=== PATIENT | female | born 1970 | race Caucasian/White ===

== ENCOUNTER 2016-09-12 10:52 | Emergency (ER) | payer OTHER ==
[~2016-09-12] VITALS: Ht 157.5 cm; Wt 77.1 kg
[~2016-09-12 10:52] MED LIST: BUS10T PO; FLUO-125 PO; LEVO75TA50 PO
[2016-09-12 11:00] VITALS: BP 151/101
== END 2016-09-12 13:14 | disposition home or self-care (01) ==
LOC: ER 10:57
DX: J20.9 Acute bronchitis, unspecified (principal); J01.90 Acute sinusitis, unspecified; I10 Essential (primary) hypertension; E07.9 Disorder of thyroid, unspecified; F17.210 Nicotine dependence, cigarettes, uncomplicated; F15.10 Other stimulant abuse, uncomplicated

== ENCOUNTER 2016-11-28 21:31 | Emergency (ER) | payer OTHER ==
[~2016-11-28] VITALS: Ht 157.5 cm; Wt 79.4 kg
[2016-11-28] MEDS ORDERED: cloNIDine HCL 0.1 MG TAB ONE (21:54)
[2016-11-28] MEDS ORDERED: cloNIDine HCL 0.1 MG TAB PO ONE (23:30)
[2016-11-28] MEDS ORDERED: IBUPROFEN 600 MG TAB PO ONE (23:45)
[2016-11-28 23:50] VITALS: BP 154/105
== END 2016-11-29 00:04 | disposition home or self-care (01) ==
LOC: ER 21:34
DX: G89.29 Other chronic pain (principal); M25.561 Pain in right knee; Z88.1 Allergy status to other antibiotic agents; I10 Essential (primary) hypertension; E07.9 Disorder of thyroid, unspecified; F17.210 Nicotine dependence, cigarettes, uncomplicated; F15.10 Other stimulant abuse, uncomplicated; Z76.0 Encounter for issue of repeat prescription
CPT/HCPCS: 81025

== ENCOUNTER 2017-02-13 08:46 | Emergency (ER) | payer OTHER ==
[~2017-02-13] VITALS: Ht 157.5 cm; Wt 79.4 kg
[2017-02-13 09:03] VITALS: BP 132/99
[2017-02-13] MEDS ORDERED: cefTRIAXone SOD 1,000 MG VL IM ONE (09:15)
== END 2017-02-13 09:48 | disposition home or self-care (01) ==
LOC: ER 08:50
DX: J03.90 Acute tonsillitis, unspecified (principal); F17.210 Nicotine dependence, cigarettes, uncomplicated; F15.10 Other stimulant abuse, uncomplicated; E07.9 Disorder of thyroid, unspecified; Z88.1 Allergy status to other antibiotic agents
CPT/HCPCS: 96372; 99283; J0696

== ENCOUNTER 2017-04-18 00:25 | Emergency (ER) | payer OTHER ==
[~2017-04-18] VITALS: Ht 157.5 cm; Wt 74.8 kg
[2017-04-18 01:27] VITALS: BP 158/104
== END 2017-04-18 01:45 | disposition home or self-care (01) ==
LOC: ER 00:31
DX: J02.9 Acute pharyngitis, unspecified (principal); I10 Essential (primary) hypertension; E07.89 Other specified disorders of thyroid; F17.210 Nicotine dependence, cigarettes, uncomplicated; F15.10 Other stimulant abuse, uncomplicated; Z76.0 Encounter for issue of repeat prescription

== ENCOUNTER 2017-07-20 10:05 | Emergency (ER) | payer OTHER ==
[~2017-07-20] VITALS: Ht 157.5 cm; Wt 81.2 kg
[2017-07-20 15:59] VITALS: BP 151/91
== END 2017-07-20 16:37 | disposition home or self-care (01) ==
LOC: ER 10:05
DX: J20.9 Acute bronchitis, unspecified (principal); I10 Essential (primary) hypertension; E07.9 Disorder of thyroid, unspecified; F17.210 Nicotine dependence, cigarettes, uncomplicated; Z76.0 Encounter for issue of repeat prescription
CPT/HCPCS: 71020; 81025

== ENCOUNTER 2017-10-15 21:19 | Emergency (ER) | payer OTHER ==
[~2017-10-15] VITALS: Ht 157.5 cm; Wt 79.4 kg
[2017-10-15 22:04] VITALS: BP 153/99
== END 2017-10-16 03:22 | disposition left against medical advice (07) ==
LOC: ER 21:19
DX: M79.672 Pain in left foot (principal); Z53.21 Procedure and treatment not carried out due to patient leaving prior to being seen by health care provider
CPT/HCPCS: 73630

== ENCOUNTER 2017-11-25 19:03 | Emergency (ER) | payer OTHER ==
[~2017-11-25] VITALS: Ht 157.5 cm; Wt 79.4 kg
[2017-11-25] MEDS ORDERED: LIDOCAINE 1% (LOCAL ANESTH.) PF 5ml SDV ONE (21:58)
[2017-11-25] MEDS ORDERED: cefTRIAXone SOD 1,000 MG VL IM ONE (22:00)
[2017-11-25] MEDS ORDERED: DOXYCYCLINE 100 MG TAB/CAP PO ONE (22:00)
[2017-11-25] MEDS ORDERED: LIDOCAINE 1% (LOCAL ANESTH.) PF 5ml SDV IJ ONE (22:00)
[2017-11-25 22:47] VITALS: BP 145/95
== END 2017-11-25 22:54 | disposition home or self-care (01) ==
LOC: ER 19:03
DX: N39.0 Urinary tract infection, site not specified (principal); F17.210 Nicotine dependence, cigarettes, uncomplicated; E07.9 Disorder of thyroid, unspecified; I10 Essential (primary) hypertension; Z76.0 Encounter for issue of repeat prescription; Z88.1 Allergy status to other antibiotic agents
CPT/HCPCS: 96372; 99283; J0696

== ENCOUNTER 2018-03-22 20:29 | Emergency (ER) | payer OTHER ==
[~2018-03-22] VITALS: Ht 157.5 cm; Wt 79.4 kg
[2018-03-22 20:47] VITALS: BP 150/99
== END 2018-03-22 23:17 | disposition home or self-care (01) ==
LOC: ER 20:40
DX: J02.9 Acute pharyngitis, unspecified (principal); Z76.0 Encounter for issue of repeat prescription; I10 Essential (primary) hypertension; E07.9 Disorder of thyroid, unspecified; F17.210 Nicotine dependence, cigarettes, uncomplicated; Z88.1 Allergy status to other antibiotic agents; Z79.899 Other long term (current) drug therapy

== ENCOUNTER 2018-05-01 18:41 | Emergency (ER) | payer OTHER ==
[~2018-05-01] VITALS: Ht 157.5 cm; Wt 79.4 kg
[2018-05-01 18:56] VITALS: BP 159/99
[2018-05-01] MEDS ORDERED: cloNIDine HCL 0.1 MG TAB ONE (19:01)
[2018-05-01] MEDS ORDERED: cloNIDine HCL 0.1 MG TAB PO ONE (19:15)
[2018-05-01 19:44] LABS: Urine Bacteria FEW /hpf (None Seen); Urine Blood TRACE /uL (Negative); Urine Mucus FEW (None Seen); Urine Specific Gravity 1.022 (1.001-1.035); Urine Sperm PRESENT /hpf (None Seen); Urine WBC 217 /hpf (0 - 5)
== END 2018-05-01 21:48 | disposition left against medical advice (07) ==
LOC: ER 18:43
DX: R03.0 Elevated blood-pressure reading, without diagnosis of hypertension (principal); Z53.21 Procedure and treatment not carried out due to patient leaving prior to being seen by health care provider
CPT/HCPCS: 81001

== ENCOUNTER 2018-07-16 09:49 | Emergency (ER) | payer OTHER ==
[~2018-07-16] VITALS: Ht 157.5 cm; Wt 77.1 kg
[2018-07-16 09:58] VITALS: BP 151/98
== END 2018-07-16 10:39 | disposition home or self-care (01) ==
LOC: ER 09:49
DX: H66.92 Otitis media, unspecified, left ear (principal); N76.0 Acute vaginitis; B96.89 Other specified bacterial agents as the cause of diseases classified elsewhere; F17.210 Nicotine dependence, cigarettes, uncomplicated; F12.10 Cannabis abuse, uncomplicated; I10 Essential (primary) hypertension; E07.9 Disorder of thyroid, unspecified; Z88.1 Allergy status to other antibiotic agents
CPT/HCPCS: 81002; 81025

== ENCOUNTER 2019-05-13 10:51 | Emergency (ER) | payer OTHER ==
[~2019-05-13] VITALS: Ht 157.5 cm; Wt 78.9 kg
[2019-05-13 11:21] VITALS: BP 117/81
== END 2019-05-13 12:22 | disposition home or self-care (01) ==
LOC: ER 10:51
DX: S82.832A Other fracture of upper and lower end of left fibula, initial encounter for closed fracture (principal); S82.52XA Displaced fracture of medial malleolus of left tibia, initial encounter for closed fracture; I10 Essential (primary) hypertension; F17.210 Nicotine dependence, cigarettes, uncomplicated; Z88.1 Allergy status to other antibiotic agents; Z79.899 Other long term (current) drug therapy; X50.1XXA Overexertion from prolonged static or awkward postures, initial encounter; Y93.89 Activity, other specified; Y92.89 Other specified places as the place of occurrence of the external cause; Y99.8 Other external cause status
CPT/HCPCS: 29515; 73610; 73630

== ENCOUNTER 2019-07-25 13:20 | Emergency (ER) | payer OTHER ==
[~2019-07-25] VITALS: Ht 157.5 cm; Wt 79.4 kg
[2019-07-25 14:30] VITALS: BP 138/85
== END 2019-07-25 17:43 | disposition left against medical advice (07) ==
LOC: ER 13:27
DX: M25.571 Pain in right ankle and joints of right foot (principal); Z53.21 Procedure and treatment not carried out due to patient leaving prior to being seen by health care provider

== ENCOUNTER 2019-08-15 18:28 | Emergency (ER) | payer OTHER ==
[~2019-08-15] VITALS: Ht 157.5 cm; Wt 74.8 kg
[2019-08-15 20:43] VITALS: BP 151/100
== END 2019-08-15 20:58 | disposition home or self-care (01) ==
LOC: ER 18:28
DX: M25.572 Pain in left ankle and joints of left foot (principal); S82.892D Other fracture of left lower leg, subsequent encounter for closed fracture with routine healing; Z76.0 Encounter for issue of repeat prescription; X58.XXXD Exposure to other specified factors, subsequent encounter
CPT/HCPCS: 29515; 73610

== ENCOUNTER 2019-08-31 18:20 | Emergency (ER) | payer OTHER ==
[~2019-08-31] VITALS: Ht 157.5 cm; Wt 79.4 kg
[2019-08-31 19:05] VITALS: BP 135/98
[2019-08-31 20:17] LABS: Urine Bacteria FEW /hpf (None Seen); Urine Blood Negative /uL (Negative); Urine Hyaline Cast FEW /lpf (0 - 2); Urine Mucus FEW (None Seen); Urine Specific Gravity 1.021 (1.001-1.035); Urine WBC 8 /hpf (0 - 5)
[2019-08-31 20:27] LABS: Basophils # (auto) 0.1 uL; Basophils % (auto) 1.1 % (0.0-2.0); Eosinophils # (auto) 0.1 uL; Eosinophils % (auto) 1.2 % (0.0-7.0); Hematocrit 43.2 % (36.0-46.0); Lymphocytes # (auto) 2.3 uL; Lymphocytes % (auto) 24.2 % (10.0-50.0); Mean Corpuscular Hemoglobin 33.8 pg (28.0-32.0); Mean Corpuscular Hgb Conc. 34.7 g/dL (32.0-36.0); Mean Corpuscular Volume 97.3 fL (80.0-100.0); Monocytes # (auto) 0.7 uL; Monocytes % (auto) 7.8 % (0.0-12.0); Neutrophils # (auto) 6.3 uL; Neutrophils % (auto) 65.7 % (37.0-80.0); Nucleated Red Blood Cells % 0.1 %; Platelet Count (auto) 336 10^3/uL (140-450); Red Blood Cells 4.44 10^6/uL (4.0-5.20); Red Cell Distribution Width 13.6 % (11.8-14.3); White Blood Cell 9.6 10^3/uL (4.4-10.8)
[2019-08-31 20:36] LABS: Albumin 3.6 g/dL (3.4-5.0); Amylase 34 U/L (25-115); Anion Gap 8 (5-15); Blood Urea Nitrogen 16 mg/dL (7-18); Carbon Dioxide 23 mmol/L (21-32); Chloride 102 mmol/L (98-107); Glucose 85 mg/dL (74-106); Lipase 121 U/L (73-393); Potassium 4.3 mmol/L (3.5-5.1); Sodium 133 mmol/L (136-145)
[2019-08-31 20:38] LABS: Alanine Aminotransferase 71 U/L (13-56); Aspartate Aminotransferase 65 U/L (15-37); BUN/Creatinine Ratio 15.4; GFR African American 72 mL/min; GFR Non-African American 60 mL/min
[2019-08-31 20:40] LABS: Alkaline Phosphatase 108 U/L (45-117); Bilirubin, Total 0.4 mg/dL (0.2-1.0); Total Protein 8.4 g/dL (6.4-8.2)
[2019-08-31] MEDS ORDERED: IOHEXOL 300 MG/ML 100ML BOTTLE IJ ONE (20:43)
== END 2019-09-01 00:12 | disposition home or self-care (01) ==
LOC: ER 18:20
DX: N39.0 Urinary tract infection, site not specified (principal); I10 Essential (primary) hypertension; F17.210 Nicotine dependence, cigarettes, uncomplicated; Z88.1 Allergy status to other antibiotic agents
CPT/HCPCS: 36415; 80053; 81001; 82150; 83605; 83690; 84484; 85025; 93005